=== PATIENT | male | born 1950 | race Caucasian/White ===

== ENCOUNTER 2021-07-10 04:21 | Day surgery (SDC) | payer OTHER, BC ==
[2021-07-06 17:01] VITALS: BMI 29.9
[2021-07-10] MEDS ORDERED: BACITRACIN 15 GM TUBE TOPICAL OINTMENT ONE (13:33)
[2021-07-10] MEDS ORDERED: LIDOCAINE HCL 1%, 10 MG/ML (20ML VIAL) ONE (13:33)
[2021-07-10] MEDS ORDERED: MIDAZOLAM HCL 2 MG/2 ML SINGLE DOSE VIAL ONE (14:07)
[2021-07-10] MEDS ORDERED: PROPOFOL 20 ML ONE ×3 (14:07)
[2021-07-10] MEDS ORDERED: SUCCINYLCHOLINE CHLORIDE 200 MG/10 ML SYRINGE ONE (14:07)
[2021-07-10] MEDS ORDERED: ACETAMINOPHEN 1000 MG/100 ML VIAL IVPB ONE (14:14)
[2021-07-10] MEDS ORDERED: DEXTROSE 5%-0.45% SALINE 1,000 ML IV SCH (14:15)
[2021-07-10] MEDS ORDERED: IBUPROFEN 800 MG/8 ML IJ IVPB SCH (14:15)
[2021-07-10] MEDS ORDERED: KETOROLAC TROMETHAMINE 30 MG/1 ML VIAL ONE (14:26)
[2021-07-10] MEDS ORDERED: DEXAMETHASONE SOD PHOSPHATE 4 MG/1 ML VIAL ONE (14:26)
[2021-07-10] MEDS ORDERED: ceFAZolin SODIUM 1 GM VIAL IVPB ONE (14:29)
[2021-07-10] MEDS ORDERED: LIDOCAINE HCL 1%, 10 MG/ML (20ML VIAL) INF ONE (14:37)
[2021-07-10] MEDS ORDERED: ONDANSETRON 4 MG/2 ML VIAL IVPUSH PRN (15:09)
[2021-07-10] MEDS ORDERED: oxyCODONE HCL 5 MG TABLET PO PRN ×2 (15:09)
[2021-07-10 16:14] VITALS: PULSE 59
[2021-07-10 16:21] VITALS: BP 129/73; TEMP 97.3
== END 2021-07-10 17:00 | disposition home or self-care (01) ==
LOC: JASU-SURG 04:21
PROVIDERS: ATTEND Urology
PROC: 0VTTXZZ Resection of Prepuce, External Approach (ICD-10-PCS; principal; 2021-07-10 13:30)
DX: N47.1 Phimosis (principal); N48.1 Balanitis; E11.9 Type 2 diabetes mellitus without complications
CPT/HCPCS: 82962; 94760; J0131